=== PATIENT | male | born 1990 | race Caucasian/White ===

== ENCOUNTER 2021-06-03 11:25 | Emergency (ER) | payer OTHER ==
[~2021-06-03] VITALS: Ht 177.8 cm; Wt 87.7 kg
--- NOTE | 2021-06-03 11:54 | RAD ---
EXAM: Right shoulder, 2 views. HISTORY: Injury. Pain. COMPARISON: None. FINDINGS: 2 views of the right shoulder obtained. There is an anterior shoulder dislocation. The acro mioclavicular joint is intact. IMPRESSION: Right shoulder dislocation. Follow-up following closed reduction is recommended to confir m alignment and exclude concomitant fracture. Electronically signed by: Jeanine Muñoz MD (06/03/2021 11:51 AM) [id number]
[2021-06-03 11:57] VITALS: BP 160/74
[2021-06-03] MEDS ORDERED: PROPOFOL 10 MG/ML (20ML) VIAL. IV ONE (12:00)
[2021-06-03] MEDS ORDERED: KETAMINE HCL IN NACL, ISO-OSM 50 MG/5 ML SYRINGE IV ONE (12:00)
[2021-06-03] MEDS ORDERED: KETOROLAC 15 MG/ML VIAL. IVP ONE (12:00)
[2021-06-03] MEDS ORDERED: fentaNYL PF VIAL 100 MCG/2 ML VIAL IVP ONE (12:00)
--- NOTE | 2021-06-03 13:15 | RAD ---
XR SHOULDER_RIGHT 2+ VIEWS Clinical Indication: Reason: post-reduction / Spl. Instructions: / History: Comparison: Right shoulder, 2 views, earlier same day. Findings: There has been successful reduction of anterior shoulder dislocation. No acute fracture is seen. The right lung remains clear. Soft tissues unremarkable. IMPRESSION: Successful reduction. Electronically signed by: Dirk Thornton MD (06/03/2021 1:13 PM) [id number]
[2021-06-03 13:25] VITALS: BP 133/87
[2021-06-03] MEDS ORDERED: IBUP-1007 PO (13:46)
[2021-06-03] MEDS ORDERED: MORP15TA PO (13:46)
--- NOTE | 2021-06-03 13:48 | PHYS DOC ---
Past Medical History Past Surgical History: No Surgical History Smoking Status: Never Smoker Alcohol Use: None Adult General Chief Complaint Chief Complaint: SHOULDER INJURY HPI HPI The patient is a 30-year-old male who is otherwise healthy. He presents for evaluation of acute right shoulder discomfort and deformity, closed, in the aftermath of a fall at work during which he caught himself with his right arm. Denies hitting head or neck or hitting or hurting any other part of his body during the episode. Denies numbness or tingling to his distal right arm. No therapy for symptoms prior to arrival. Review of Systems Review of Systems A 12 point review of systems was completed and was negative except where noted in HPI above. Current Medications Current Medications Current Medications Medications (Trade) Dose Ordered Sig/Denilson Start Time Stop Time Status Last Admin Dose Admin Fentanyl Citrate (Fentanyl 2ml Vial) 75 mcg 1X ONCE 06/03/21 12:00 06/03/21 12:01 DC 06/03/21 12:07 75 MCG Ketamine HCl (Ketamine) 85 mg 1X ONCE 06/03/21 12:00 06/03/21 12:01 DC 06/03/21 12:08 50 MG Ketorolac Tromethamine (Toradol 15mg Vial) 15 mg 1X ONCE 06/03/21 12:00 06/03/21 12:01 DC 06/03/21 12:06 15 MG Propofol (Diprivan) 85 mg 1X ONCE 06/03/21 12:00 06/03/21 12:01 DC 06/03/21 12:08 100 MG Allergies Allergies Allergies Coded Allergies Type Severity Reaction Last Updated Verified No Known Drug Allergies 06/03/21 No Physical Exam Physical Exam 30-year-old male appearing nontoxic and in no acute distress. Head is normocephalic and atraumatic. Neck is supple and nontender. Oropharynx is moist. Lungs are clear to auscultation at all stations. There is a normal S1 and S2 without rubs or gallops and capillary refill is appropriate, less than 2 seconds globally. Abdomen is soft, nontender and nondistended. Skin is warm and dry without cyanosis, clubbing or edema. Psychiatrically, the patient demonstrates appropriate mood and affect and is alert. Evaluation of the right upper extremity is remarkable for an obvious closed anterior deformity to the right shoulder suggestive of anterior shoulder dislocation. No discomfort with ranging of any other joint of the right upper extremity. Right upper extremity is neurovascularly intact distally with strength out of 5, sensation intact light touch in all nerve distributions, radial pulse 2+, capillary refill less than 2 seconds, hand warm and well-perfused. Current Patient Data Vital Signs Vital Signs Date Time Temp Pulse Resp B/P (MAP) Pulse Ox O2 Delivery O2 Flow Rate FiO2 06/03/21 12:07 24 100 Nasal Cannula 2.0 06/03/21 11:57 66 160/74 91 06/03/21 11:26 98.2 98.2 EKG EKG [] Radiology/Procedures Radiology/Procedures Dislocation reduction note: Traction/countertraction utilized by wy to reduce right anterior shoulder dislocation, in standard fashion. Neurovascularly intact both pre and post procedure. Patient tolerated well. No complications. Procedural sedation note: Patient procedurally sedated with propofol and ketamine as per nursing flowsheet. Respiratory therapy present during the entire procedure. No desaturations. No complications. Patient tolerated well and returned to his neurocognitive baseline afterwards. XR SHOULDER_RIGHT 2+ VIEWS Clinical Indication: Reason: post-reduction / Spl. Instructions: / History: Comparison: Right shoulder, 2 views, earlier same day. Findings: There has been successful reduction of anterior shoulder dislocation. No acute fracture is seen. The right lung remains clear. Soft tissues unremarkable. IMPRESSION: Successful reduction. Electronically signed by: Dirk Thornton MD (06/03/2021 1:13 PM) [id number] DICTATED and SIGNED BY: DIRK THORNTON MD DATE: 06/03/21 [id number] EXAM: Right shoulder, 2 views. HISTORY: Injury. Pain. COMPARISON: None. FINDINGS: 2 views of the right shoulder obtained. There is an anterior shoulder dislocation. The acromioclavicular joint is intact. IMPRESSION: Right shoulder dislocation. Follow-up following closed reduction is recommended to confirm alignment and exclude concomitant fracture. Electronically signed by: Jeanine Wilkins MD (06/03/2021 11:51 AM) [id number] DICTATED and SIGNED BY: JEANINE WILKINS MD DATE: 06/03/21 [id number] Course & Med Decision Making Course & Med Decision Making Right shoulder reduced under procedural sedation as per documentation above. Patient tolerated the reduction procedure well and there were no complications. Shoulder immobilizer applied. Neurovascularly intact to the distal right arm and hand post procedure. Will discharge home to follow-up closely with orthopedics in the office. He is to wear the shoulder immobilizer until cleared by orthopedics to remove it. Patient understands that if he feels worse instead of better or develops other new symptoms of concern that he should return to the emergency department immediately for reevaluation. Questions are answered. Dragon Disclaimer Dragon Disclaimer This electronic medical record was generated, in whole or in part, using a voice recognition dictation system. Departure Departure Impression: Primary Impression: Anterior dislocation of right shoulder Disposition: HOME / SELF CARE / HOMELESS Condition: IMPROVED Referrals: CHARLENE ALANIS MD Patient Instructions: Shoulder Dislocation Additional Instructions: Follow-up very closely with Dr. Alanis or one of her colleagues in the orthopedic office in the next 3 to 5 days for reevaluation of your symptoms and a discussion of next best steps in care. Rest, ice and elevate your injured arm. Wear the shoulder immobilizer until cleared by the orthopedic doctor to remove it. This prevents recurrent dislocation and no other problems. Take a 600 mg ibuprofen pill every 6 hours as needed for discomfort. Take with food to preve nt stomach upset. For pain not well controlled with ibuprofen you may take an oral morphine pill every 6 hours as needed. Be careful because oral morphine can make you sleepy so do not drive or work or operate machinery while taking it. Return to the emergency department right away for worsening symptoms of any kind or with any other new symptoms of concern. Scripts Morphine Sulfate (MORPHINE SULFATE) 15 Mg Tablet 1 TAB PO QID PRN for breakthrough pain, #9 TAB Prov: LALY BARON MD 06/03/21 Ibuprofen (IBUPROFEN) 600 Mg Tablet 600 MG PO PRN Q6HRS PRN for INFLAMMATION for 10 Days, #40 TAB Prov: LALY BARON MD 06/03/21 Problem Qualifiers Primary Impression: Anterior dislocation of right shoulder Encounter type: initial encounter Qualified Codes: S43.014A - Anterior dislocation of right humerus, initial encounter LALY BARON MD Jun 03, 2021 13:48
[2021-06-03] MEDS ORDERED: CYCLOBENZAPRINE 10 MG TABLET. PO ONE (14:30)
== END 2021-06-03 14:14 | disposition home or self-care (01) ==
LOC: ER 11:25
DX: S43.004A Unspecified dislocation of right shoulder joint, initial encounter (principal); W18.39XA Other fall on same level, initial encounter; Y93.89 Activity, other specified; Y92.69 Other specified industrial and construction area as the place of occurrence of the external cause; Y99.0 Civilian activity done for income or pay
CPT/HCPCS: 23650; 73030; 99285; J1885; J2704; J3010